=== PATIENT | female | born 1990 | race Caucasian/White ===

== ENCOUNTER 2019-04-19 20:58 | Emergency (ER) | payer OTHER ==
[~2019-04-19] VITALS: Ht 162.6 cm; Wt 72.6 kg
[2019-04-19 21:15] LABS: URINE BILIRUBIN NEGATIVE (Negative); URINE BLOOD 2+ (Negative); URINE CLARITY SL CLOUDY; URINE COLOR YELLOW; URINE GLUCOSE-RANDOM* NEGATIVE (Negative); URINE KETONES NEGATIVE (Negative); URINE PROTEIN (DIPSTICK) TRACE (Negative); URINE SPECIFIC GRAVITY 1.015 (1.005-1.035)
[2019-04-19 21:16] LABS: URINE LEUKOCYTES-REFLEX 2+ (Negative); URINE NITRITE-REFLEX POSITIVE (Negative)
[2019-04-19 21:29] LABS: CASTS None Seen /LPF (None Seen); MUCUS 4-6 Moderate strn/LPF (None Seen); SQUAMOUS 4-10 Moderate /LPF (0-3); URINE WBC-REFLEX >25 Many /HPF (0-5)
[2019-04-19 21:30] LABS: BACTERIA-REFLEX >30 Many /HPF (None Seen); CRYSTALS None Seen /LPF (None Seen)
[2019-04-19 21:42] LABS: ABSOLUTE NEUTROPHILS 7.5 thou/uL (1.4-8.2); BASOPHILS 0.3 % (0.0-2.0); EOSINOPHILS 0.4 % (0.0-3.0); HEMATOCRIT 35.2 % (37.0-47.0); HEMOGLOBIN 11.9 gm/dL (12.0-15.0); LYMPHOCYTES 12.7 % (24.0-44.0); MCH 29.1 pg (26.0-34.0); MCHC 33.8 g/dL (28.0-37.0); MCV 86.2 fL (80.0-100.0); MONOCYTES 8.8 % (1.0-8.0); PLATELET COUNT 231 thou/uL (150-400); POLYS 77.8 % (36.0-66.0); RBC 4.09 mil/uL (4.20-5.00); RDW 12.4 % (10.5-14.5); WBC 9.7 thou/uL (4.0-11.0)
[2019-04-19 21:50] LABS: CREATININE 0.9 mg/dL (0.6-1.0); POTASSIUM 3.7 mmol/L (3.5-5.1)
[2019-04-19] MEDS ORDERED: ZOFRAN ODT4 MG PO (23:32)
[2019-04-19] MEDS ORDERED: KEFLEX500 M1 PO (23:32)
[2019-04-19 23:46] VITALS: BP 95/49
== END 2019-04-19 23:49 | disposition home or self-care (01) ==
LOC: ER 20:58
PROVIDERS: Emergency Medicine
DX: N12 Tubulo-interstitial nephritis, not specified as acute or chronic (principal)

== ENCOUNTER 2019-05-07 08:36 | Inpatient (IN) | payer OTHER ==
[2019-05-07] VITALS (8 sets, daily range): BP systolic 82–114; BP diastolic 48–67
[~2019-05-07] VITALS: Ht 162.6 cm; Wt 79.4 kg
[~2019-05-07 08:36] MED LIST: KEFLEX500 M1 PO; ZOFRAN ODT4 MG PO
[2019-05-07 08:57] LABS: URINE BILIRUBIN NEGATIVE (Negative); URINE BLOOD 3+ (Negative); URINE CLARITY SL CLOUDY; URINE COLOR YELLOW; URINE GLUCOSE-RANDOM* NEGATIVE (Negative); URINE KETONES TRACE (Negative); URINE LEUKOCYTES-REFLEX NEGATIVE (Negative); URINE NITRITE-REFLEX NEGATIVE (Negative); URINE PROTEIN (DIPSTICK) NEGATIVE (Negative); URINE SPECIFIC GRAVITY 1.025 (1.005-1.035)
[2019-05-07 09:14] LABS: BASOPHILS 0.4 % (0.0-2.0); HEMATOCRIT 35.9 % (37.0-47.0); HEMOGLOBIN 12.3 gm/dL (12.0-15.0); LYMPHOCYTES 4.1 % (24.0-44.0); MCH 29.6 pg (26.0-34.0); MCHC 34.3 g/dL (28.0-37.0); MCV 86.3 fL (80.0-100.0); MONOCYTES 3.3 % (1.0-8.0); PLATELET COUNT 215 thou/uL (150-400); POLYS 92.2 % (36.0-66.0); RBC 4.16 mil/uL (4.20-5.00)
[2019-05-07 09:26] LABS: CALCIUM 9.5 mg/dL (8.5-10.1); CREATININE 1.1 mg/dL (0.6-1.0); POTASSIUM 3.5 mmol/L (3.5-5.1)
[2019-05-07 09:33] LABS: ALBUMIN 4.2 g/dL (3.4-5.0); TOTAL PROTEIN 8.4 g/dL (6.4-8.2)
[2019-05-07 09:40] LABS: MUCUS 4-6 Moderate strn/LPF (None Seen); SQUAMOUS >10 Many /LPF (0-3)
[2019-05-07 09:41] LABS: CASTS None Seen /LPF (None Seen); CRYSTALS None Seen /LPF (None Seen); URINE RBC 0-2 Rare /HPF (0-2); URINE WBC-REFLEX 0-5 Rare /HPF (0-5)
--- NOTE | 2019-05-07 12:30 | NUR ---
PT REPORTS N/V/D SINCE LAST NIGHT...HAD A UTI PER ER AND DID NOT START CORRECT ANTIBIOTIC...NOW HAS GENERALIZED CONSTANT ACHING ABD PAIN 05/18...
[2019-05-08 04:22] VITALS: BP 109/68
[2019-05-08 06:06] LABS: HEMATOCRIT 31.6 % (37.0-47.0); HEMOGLOBIN 10.7 gm/dL (12.0-15.0); MCH 29.6 pg (26.0-34.0); MCHC 33.8 g/dL (28.0-37.0); MCV 87.7 fL (80.0-100.0); RBC 3.61 mil/uL (4.20-5.00); RDW 12.7 % (10.5-14.5); WBC 9.8 thou/uL (4.0-11.0)
[2019-05-08 07:09] VITALS: BP 94/50
[2019-05-08] MEDS ORDERED: CEPACOL SORE T1 EAC8 PO (09:00)
[2019-05-08] MEDS ORDERED: AUGMENTIN 875-1 EACH PO (09:00)
[2019-05-08 10:43] VITALS: BP 94/50
--- NOTE | 2019-05-08 10:55 | NUR ---
Nutrition: pt admitted with prior UTI, pyelonephritis that was resistant to antibiotic prescribed. Now on new antibiotic regimen. Risked for poor intake/ weight loss. Pt reports po < 75% of usual for about 3 days and weight down a few #. Unable to quantify. UBW reported as 160# but bedscale weighed pt at 175#. Also with strep pharyngitis. Tolerating clear liquids at present. Will offer Ensure clear once daily. Follow for diet advance but consider low risk.
[2019-05-08 15:34] VITALS: BP 111/72
[2019-05-08 16:16] VITALS: BP 101/62
--- NOTE | 2019-05-08 16:27 | NUR ---
ACQUIRED RESPONSIBILITY FOR PATIENT AT 0700. PATIENT WAS ADMITTED WITH PYLEONEPHRITIS AND STREP THROAT. PATIENT WAS ON CONTINUOUS IV FLUIDS AND ANTIBIOTICS. CLIENT WILL BE DISCHARGED TODAY WITH PRESCRIPTION OF AUGMENTIN AND SORE THROAT LOZENGES. CLIENT HAD 102.2 F FEVER THIS MORNING, AND THE PHYSICIAN WAS NOTIFIED. CLIENT'S FEVER CAME DOWN THIS AFTERNOON TO 98.7 F AND PHYSICAN CLEARED HER FOR DISCHARGE. REVIEWED PRESCRIBED MEDICATIONS WITH PATIENT AND PROVIDED EDUCATIONAL READING AID, REVIEWED PHYSICIAN'S RECOMMENDATION OF PATIENT SEEING HER PRIMARY CARE PHYSICIAN ON 05/13/19, AND REVIEWED CIRCUMSTANCES THAT PATIENT WOULD NEED TO IMMEDIATELY CONTACT MEDICAL HELP. PATIENT'S GOALS AFTER DISCHARGE INCLUDE PREVENTING REOCCURANCE AND REMAINING ASYMPTOMATIC.
== END 2019-05-08 17:43 | disposition home or self-care (01) | DRG 872 ==
LOC: ER 08:36 → EROBS 10:22 → 3W 10:22
PROVIDERS: Emergency Medicine; ADMIT Hospitalist
DX: A41.9 Sepsis, unspecified organism (principal); N12 Tubulo-interstitial nephritis, not specified as acute or chronic; J02.0 Streptococcal pharyngitis; Z79.2 Long term (current) use of antibiotics; Z79.899 Other long term (current) drug therapy
CPT/HCPCS: 10879

== ENCOUNTER 2019-08-30 08:06 | Emergency (ER) | payer OTHER ==
[~2019-08-30] VITALS: Ht 162.6 cm; Wt 59.0 kg
[~2019-08-30 08:06] MED LIST changes: +AUGMENTIN 875-1 EACH PO; +CEPACOL SORE T1 EAC8 PO
[2019-08-30] MEDS ORDERED: LIDOCAINE35.44 GM TOP (08:22)
[2019-08-30] MEDS ORDERED: TYLENOL WITH CO1 TA1 PO (08:22)
[2019-08-30 09:10] VITALS: BP 108/64
== END 2019-08-30 09:21 | disposition home or self-care (01) ==
LOC: ER 08:06
DX: B02.9 Zoster without complications (principal); Z90.49 Acquired absence of other specified parts of digestive tract; Z85.42 Personal history of malignant neoplasm of other parts of uterus